=== PATIENT | female | born 1940 | race Hispanic/Latino ===

== ENCOUNTER 2018-11-01 12:19 | Emergency (ER) | payer MEDICARE, OTHER ==
[2018-11-01 12:29] VITALS: BMI 29.2
--- NOTE | 2018-11-01 12:42 | ED PDOC ---
Arrival/HPI - General Historian: EMS EM Caveat: Other (Patient asystolic) - Critical Care Critical Care Minutes: 30 minutes - History of Present Illness Narrative History of Present Illness (Text): 11/01/18 12:44 Francesca Gupta is a 78 year old female, with a past medical history of hypertension, seizures, CVA, and TIA, brought by EMS to the emergency department on ALS for cardiac arrest. Per EMS, patient was eating with her when she choked on food. EMS informs attempted heimlich maneuver for 5 - 10 minutes before calling 911. Patient was found by EMS at 11:45 asytolic. Paramedics report removing food from patient's trachea after first unsuccessful intubation. Airway was then placed with breath sounds appreciated. Per EMS, ACLS was started continued until arrival to the Emergency department. Upon arrival to Emergency department, ACLS protocol was continued and patient remained in asystole. Further HPI and ROS are limited to due to asystole. Time/Duration: 1-3 hours Symptom Onset: Sudden Symptom Course: Unchanged Context: Other (Eating) Past Medical History - Provider Review Nursing Documentation Reviewed: Yes - Infectious Disease Hx of Infectious Diseases: None - Tetanus Immunization Tetanus Immunization: Up to Date - Cardiac Hx Pacemaker: No - Pulmonary Hx Respiratory Disorders: No - Neurological Hx Paralysis: No - HEENT Hx HEENT Disorder: No - Renal Hx Renal Disorder: No - Endocrine/Metabolic Hx Endocrine Disorders: No - Hematological/Oncological Hx Blood Transfusions: No Hx Blood Transfusion Reaction: No - Integumentary Hx Dermatological Disorder: No - Musculoskeletal/Rheumatological Hx Musculoskeletal Disorders: Yes (SCOLIOSIS) - Gastrointestinal Hx Gastrointestinal Disorders: No - Genitourinary/Gynecological Hx Genitourinary Disorders: No - Psychiatric Hx Emotional Abuse: No Hx Physical Abuse: No Hx Substance Use: No - Past Surgical History Past Surgical History: No Previous - Anesthesia Hx Anesthesia Reactions: No Hx Malignant Hyperthermia: No - Suicidal Assessment Feels Threatened In Home Enviroment: No Family/Social History - Physician Review Nursing Documentation Reviewed: Yes Family/Social History: Unknown Family HX Smoking Status: Unknown If Ever Smoked Hx Alcohol Use: Yes (OCCASIONAL BEER OR WINE) Hx Substance Use: No Hx Substance Use Treatment: No Allergies/Home Meds Allergies/Adverse Reactions: Allergies No Known Allergies Allergy (Verified 11/01/18 13:06) Home Medications: Home Meds Medication Instructions Recorded Confirmed Alendronate Sodium 70 mg PO MON 04/08/13 11/01/18 Atorvastatin Calcium [Lipitor] 20 mg PO QPM 04/08/13 11/01/18 Calcium Carbonate [Oscal] 500 mg PO DAILY 04/08/13 11/01/18 Levetiracetam [Keppra] 500 mg PO BID 11/26/15 11/01/18 Losartan Potassium [Cozaar] 100 mg PO QAM 11/26/15 11/01/18 [place]-3S/Dha/Epa/Fish Oil [Natural 1,200 mg PO DAILY 11/26/15 11/01/18 Fish Oil] Primidone [Mysoline] 50 mg PO BID 11/26/15 11/01/18 Apixaban [Eliquis] 5 mg PO BID 11/01/18 11/01/18 Atenolol [Tenormin] 50 mg PO DAILY 11/01/18 11/01/18 Carbidopa/Levodopa/Entacapone 1 tab PO QID 11/01/18 11/01/18 [Carbidopa, Levodopa and Entacapone 25 mg-200 ] Review of Systems - Review of Systems Systems not reviewed;Unavailable: Other (Patient asystolic) Physical Exam - Physical Exam Physical Exam Limitations: Other (ALS for cardiac arrest) Vital Signs Reviewed: Yes Temperature: Afebrile Blood Pressure: Hypotensive Pulse: Pulseless Respiratory Rate: Other (no respiratory rate) Appearance: Positive for: Other (cyanotic and skin mottled) Pain Distress: None Mental Status: Positive for: other (Asystole) - Systems Exam Head: Present: Atraumatic, Normocephalic Mouth: Present: Moist Mucous Membranes Neck: Present: Normal Range of Motion Respiratory/Chest: Present: Decreased Breath Sounds (course lung sounds w/ mechanical ventillation) Cardiovascular: No: Other (no heart sounds) Abdomen: Present: Distention (markedly distended) Back: Present: Normal Inspection Upper Extremity: Present: Cyanosis. No: Edema Lower Extremity: Present: Cyanosis Neurological: No: Speech Normal Skin: Present: Other (extremities mottled and cyanotic. ). No: Normal Color Psychiatric: No: Alert, Oriented x 3, Normal Insight, Normal Concentration Medical Decision Making ED Course and Treatment: 11/01/18 12:20 Impression: Patient is a 78 year old female brought by EMS to the emergency department on ALS for cardiac arrest. Per EMS, patient was eating with her and choked on food. Patient's attempted heimlich maneuver for 5- 10 minutes before calling 911. Patient was pronounced at 12:25. Prior Visits: Notes and results from previous visits were reviewed. Progress Notes: 11/01/18 14:06 Patient's Heart US showed no cardiac activity or movement. Patient remained asystolic on monitor. Patient was pronounced at 12:25. Case accepted to [facility] by [facility]. Patient's PMD Dr. Shane notified. - Critical Care Critical Care Minutes: 30 minutes - Scribe Statement The provider has reviewed the documentation as recorded by the Scribe Ramírez Dyer All medical record entries made by the Scribe were at my direction and personally dictated by me. I have reviewed the chart and agree that the record accurately reflects my personal performance of the history, physical exam, medical decision making, and the department course for this patient. I have also personally directed, reviewed, and agree with the discharge instructions and disposition. Disposition/Present on Arrival - Present on Arrival Any Indicators Present on Arrival: Yes History of DVT/PE: No History of Uncontrolled Diabetes: No Urinary Catheter: No History Surgical Site Infection Following: None - Disposition Have Diagnosis and Disposition been Completed?: No Diagnosis: Cardiac arrest Disposition: WITH WITHOUT AUTOPSY Disposition Time: 12:25 Condition:
[2018-11-01 13:48] VITALS: BP 0/0; PULSE 0; RESP 0; TEMP 96.5; O2SAT 0
== END 2018-11-01 20:36 ==
LOC: ED 12:19
DX: I46.9 Cardiac arrest, cause unspecified (principal)